=== PATIENT | female | born 1985 | race American Indian/Alaskan Native ===

== ENCOUNTER 2021-01-15 16:10 | Inpatient (IN) | payer OTHER ==
[2021-01-15] MEDS ORDERED: ACETAMINOPHEN 325 MG TAB PO PRN (17:53)
[2021-01-15] MEDS ORDERED: MAGNESIUM HYDROXIDE (MOM) ORAL LIQD UDC PO PRN (17:53)
[2021-01-15] MEDS ORDERED: ONDANSETRON 4 MG ODT TAB PO PRN (17:58)
[2021-01-15] MEDS ORDERED: hydrALAZINE 20 MG/1 ML INJ IV PRN (17:58)
[2021-01-15] MEDS ORDERED: POLYETHYLENE GLYCOL 3350 17 GM POWDER PO PRN (17:58)
[2021-01-16] MEDS: ENOXAPARIN 40 MG/0.4 ML INJ SUB-Q SCH (11:15)
[2021-01-16] MEDS: FAMOTIDINE 10 MG TAB PO SCH ×3 (11:15→22:12)
[2021-01-16] MEDS: FOLIC ACID 1 MG TAB PO SCH (11:15)
[2021-01-16] MEDS: FERROUS SULFATE 325 MG TAB PO SCH (11:15)
[2021-01-16 11:16] LABS: Hematocrit 29.8 % (30.3-42.9); Hemoglobin 9.8 gm/dl (10.1-14.3); Mean Corpuscular HGB Conc 33 % (30-34); Mean Corpuscular Volume 84 fl (79-97); Platelet Count 555 K/mm3 (140-440); Red Blood Count 3.55 M/mm3 (3.65-5.03)
[2021-01-16] MEDS: HYDROcodone/ACETAMINOPHEN 5-325 MG TAB PO PRN ×2 (11:16→17:12)
[2021-01-16 11:18] LABS: Red Cell Distribution Width 22.1 % (13.2-15.2)
[2021-01-16] MEDS: VALPROIC ACID 250 MG CAP PO SCH ×3 (11:18→22:12)
[2021-01-16] MEDS: SENNOSIDES 8.6 MG TAB PO SCH ×2 (11:18→22:12)
[2021-01-16] MEDS: MAGNESIUM CHLORIDE ER 64 MG TAB PO SCH (11:18)
[2021-01-16 11:32] LABS: Alanine Aminotransferase 31 units/L (7-56); Albumin 2.4 g/dL (3.9-5); Blood Urea Nitrogen 8 mg/dL (7-17); Calcium 8.4 mg/dL (8.4-10.2); Hemolysis Index 7
[2021-01-16 11:38] LABS: BUN/Creatinine Ratio 40
--- NOTE | 2021-01-16 12:07 | History and Physical Report ---
History of Present Illness Date: 01/16/21 Date of admission: 01/16/21 10:28 Chief Complaint: Right intertrochanteric fracture History of present illness: 35-year-old female with a right intertrochanteric hip fracture that sought care in the ED due to pain and swelling. Initial x-rays showed a minimally displaced fracture with no extension into the intertrochanteric area and the patient was managed nonoperatively. Patient will subsequently discharged home where the pain became worse. Upon further examination, the fracture had become more displaced and she was taken for an IM nail procedure for fixation on 01/12/[address] Hanley. Patient also experienced a fall afterwards, examination after the fall revealed no loosening or damage to the hardware. Patient does have long history of narcotic use for pain related to sickle cell crisis. Initially the patient was being looked at to discharge home however due to lack of funding and poor social support she was selected as a candidate for participation in acute rehab under our [facility] caseload. Speaking with therapy who have worked with the patient previously and upon my examination of the patient, she is very fixated on pain and starts to cry as soon as I entered the room even though she was seemingly fine from the doorway before I walked in. Did spend approximately 20 minutes with her discussing her pain medication regimen and assuring her that we would do our best to control her pain while at the same time assisting her with transitioning to oral medications and helping her to avoid being oversedated. Patient is anxious on exam and fixated on the pain medications, poor dentition is also witnessed and raises concern for possible drug use although the patient denies this. Screen on admission was negative for any illicit substances tested and alcohol levels were normal. Patient would likely benefit from social work intervention once she discharges if we can find outpatient home health that will take her without insurance. After the patient was medically stabilized they were transferred for further rehabilitation. All available medical records have been reviewed. Plan of care was discussed with patient. Past History Past Medical History: seizures, other (Sickle cell anemia) Past Surgical History: Social history: single, lives with family (Patient lives with a fianc, some notes stated that she was homeless however she does live in a structure in someone's backyard), full code. denies: smoking, alcohol abuse (Admits to utilizing alcohol 3 days a week but states she does not overuse), prescription drug abuse, IV drug use Family history: other (Sickle cell anemia) Medications and Allergies Allergies Allergy/AdvReac Type Severity Reaction Status Date / Time No Known Allergies Allergy Unverified 01/16/21 10:18 Active Meds: Active Medications Acetaminophen (Acetaminophen 325 Mg Tab) 650 mg PO Q6H PRN PRN Reason: Headache Hydrocodone Bitart/Acetaminophen (Hydrocodone/Acetaminophen 5-325 Mg Tab) 2 each PO Q4H PRN PRN Reason: Pain, Moderate (4-6) Hydrocodone Bitart/Acetaminophen (Hydrocodone/Acetaminophen 5-325 Mg Tab) 1 each PO Q4H PRN PRN Reason: Mild Pain unrelieved by APAP Last Admin: 01/16/21 11:16 Dose: 1 each Documented by: Bisacodyl (Bisacodyl 10 Mg Rect Supp) 10 mg ND QDAY PRN PRN Reason: Constipation unrelieved by MOM Enoxaparin Sodium (Enoxaparin 40 Mg/0.4 Ml Inj) 40 mg SUB-Q QDAY [facility] Last Admin: 01/16/21 11:15 Dose: 40 mg Documented by: Famotidine (Famotidine 10 Mg Tab) 10 mg PO BID [facility] Last Admin: 01/16/21 11:16 Dose: 10 mg Documented by: Ferrous Sulfate (Ferrous Sulfate 325 Mg Tab) 325 mg PO QDAY [facility] Last Admin: 01/16/21 11:15 Dose: 325 mg Documented by: Folic Acid (Folic Acid 1 Mg Tab) 1 mg PO QDAY [facility] Last Admin: 01/16/21 11:15 Dose: 1 mg Documented by: Hydralazine HCl (Hydralazine 20 Mg/1 Ml Inj) 10 mg IV Q4HR PRN PRN Reason: Hypertension Hydromorphone HCl (Hydromorphone 1 Mg/1 Ml Inj) 1 mg IV Q4H PRN PRN Reason: Pain , Severe (7-10) Magnesium Chloride (Magnesium Chloride Er 64 Mg Tab) 64 mg PO QDAY [facility] Last Admin: 01/16/21 11:18 Dose: 64 mg Documented by: Magnesium Hydroxide (Magnesium Hydroxide (Mom) Oral Liqd Udc) 30 ml PO QDAY PRN PRN Reason: Constipation Ondansetron HCl (Ondansetron 4 Mg Odt Tab) 4 mg PO Q8H PRN PRN Reason: Nausea And Vomiting Polyethylene Glycol (Polyethylene Glycol 3350 17 Gm Powder) 17 gm PO QDAY PRN PRN Reason: Constipation Potassium Chloride (Potassium Chloride Er 20 Meq Tab) 40 meq PO QDAY [facility] Senna (Sennosides 8.6 Mg Tab) 17.2 mg PO QHS [facility] Last Admin: 01/16/21 11:18 Dose: Not Given Documented by: Valproic Acid (Valproic Acid 250 Mg Cap) 500 mg PO BID [facility] Last Admin: 01/16/21 11:18 Dose: 500 mg Documented by: Review of Systems All systems: negative (ROS negative for 10 systems except as noted below with pertinent positives and negatives.) Constitutional: no weight gain, no fever Ears, nose, mouth and throat: no tinnitis, no decreased hearing Cardiovascular: rapid/irregular heart beat, no chest pain, no palpitations, no edema Respiratory: no cough, no shortness of breath Gastrointestinal: constipation, no abdominal pain, no nausea, no vomiting, no diarrhea Musculoskeletal: gait dysfunction, fractures, no arm numbness/tingling, no leg numbness/tingling Integumentary: wounds, no rash, no pruritis Neurological: weakness, seizures, confusion Psychiatric: anxiety, disorientation Exam - Exam Narrative exam: MUSCULOSKELETAL SPECIALTY EXAM CONSTITUTIONAL: Well developed, malnourished, thin, appropriately groomed LYMPHATIC: No appreciable abnormalities palpable in neck RESPIRATORY: Clear to auscultation bilaterally, no increased work of breathing CARDIOVASCULAR: Regular Rate/ Rhythm, no swelling, edema or tenderness in BUE or BLE. Pulses palpable in all extremities. All extremities warm. GI: + bowel sounds, soft, NTTP, nondistended. INTEGUMENTARY: Wound on right lower extremity intact with slight drainage, zip closure, otherwise normal, no lesion, rash, masses or bruising noted in extremities. MUSCULOSKELETAL: BUE and BLE normal without defect, crepitus, subluxation, effusion, arthritic changes or TTP. BUE 4+/5, good ROM, with normal tone. LLE 4+/5 good ROM, with normal tone, decreased range of motion/due to pain on the right lower extremity NEURO: CN 2-12 grossly intact. Sensation intact in all extremities. Reflexes 2+ bilaterally at biceps, brachioradialis and patella. No clonus at ankles. Coordination intact in BUE. No tremor noted in 4 extremities. POSTURE and GAIT: Sitting posture good. Balance and gait deferred until seen with therapy. PSYCH: Alert, disoriented to year and place, affect appears anxious. Insight difficult to assess, patient seems fixated on pain medications. - Labs CBC & Chem 7: 01/16/21 10:41 01/16/21 10:41 Labs: Laboratory Results - last 72 hr 01/16/21 01/16/21 01/16/21 10:41 10:41 10:41 WBC 11.5 H RBC 3.55 L Hgb 9.8 L Hct 29.8 L MCV 84 MCH 28 MCHC 33 RDW 22.1 H Plt Count 555 H WBC Morphology TNR Sodium 131 L Potassium 3.5 L Chloride 93.4 L Carbon Dioxide 28 Anion Gap 13 BUN 8 Creatinine < 0.2 L Estimated GFR > 60 BUN/Creatinine Ratio 40 Glucose 111 H Calcium 8.4 Magnesium 1.80 Total Bilirubin 0.50 AST 53 H ALT 31 Alkaline Phosphatase 282 H Total Protein 7.2 Albumin 2.4 L Albumin/Globulin Ratio 0.5 Assessment and Plan Assessment and plan: Patient was assessed and evaluated for Acute Inpatient Rehab Unit. Due to the patients above-mentioned medical complexity, along with decreased functional mobility and self care, this patient continues to require and be appropriate for a comprehensive, multidisciplinary [id number] reha bilitation program. These needs cannot be met in an outpatient or other less intensive setting. The patient would continue to benefit from skilled therapy intervention for at least 3 hours per day, five days a week, with techniques specific to the needs of the patient to improve function, activities of daily living, and reintegration into the community. The patient continues to require: -- OT to improve ROM, self-care, and learn use of adaptive equipment -- PT to improve strength and balance, functional transfers, and ambulation with energy conservation techniques to improve functional mobility -- 24 hour RN to ensure and prevent skin breakdown, promote progressive independence while ensuring safety, ensure education regarding medications, and incorporation of the rehabilitation at the bedside -- 24 hour Release Of Information Clerk to coordinate this interdisciplinary program, and to manage/prevent complications as a result of the patients medical comorbidities. -Plan of care by day 4 -Weekly team conferences With such a program, there is a reasonable certainty that the goals individualized for this patient can be achieved within the specified length of stay. Right hip fracture: Continue to monitor wound for healing. Physical therapy to improve patient's ability to ambulate and mobilize. Nursing to assist patient with getting up out of bed and into a chair for meals each day. Pain control as needed with focus on switching to oral medications prior to discharge. Have discussed this with patient at length. Monitor wound for any signs of dehiscence or infection. Change dressing every other day and as needed. Patient will need follow-up with Dr. Hanley. Seizures: Continue medication and adjust as needed. Seizure precautions in place. Sickle cell anemia: Patient states she is on hydroxyurea at home however I do not see that being listed as one of her medications here. We will restart that and monitor. Severe malnutrition: Consult dietitian. BMI 15, decreased muscle mass ADL dysfunction: OT will work on improving ability to perform ADLs (including assistive devices) to increase independence and decrease caregiver burden and improve functional transfers and mobility training. Difficulty walking: PT will work on gait training and proper use of assistive devices and advance as appropriate to use of stairs and outside ambulation on uneven surfaces. Unsteadiness on feet: PT will work on improving static and dynamic sitting and standing balance as well as proper use of assistive devices to decrease risk of falls. Abnormality of gait: PT will work to improve safety and efficiency of gait through neuromotor training and gait training along with instruction on proper use of assistive devices. Muscle weakness: PT & OT will work on strengthening exercises to improve functional strength including mixture of closed and open kinetic chain exercises. Debility: PT & OT will work on improving overall functional status to improve participation with ADLs, mobility and social involvement. Fatigue: PT & OT will work on improving endurance through aerobic exercises and therapeutic activity while monitoring patients tolerance for activity and vital signs as needed. DVT ppx: Lovenox Pain: Continue physical modalities in therapy and pain medications as needed to achieve functional pain control. Sleep: Monitor and address as needed. Bowel: Monitor and address as needed. Appetite: Monitor and address as needed. Discharge planning: Pending therapy progress and care plan meeting. Will continue discussion with therapy team, SW, patient and family. Restrictions/ Precautions: Falls, seizure WB status: Partial weightbearing on the right lower extremity Functional Hx: ADLs: Independent Cognition: Independent Mobility: No AD Barriers to Discharge: Decreased mobility and ability to perform self care, balance deficits, weakness Estimated Length of Stay: 710 days Discharge Destination: Home with family POST ADMISSION PHYSICIAN EVALUATION I have examined the patient and find that functional status, medical condition and appropriateness for IRF admission are essentially unchanged from those described in the preadmission screening. Will monitor for worsening wound dehiscence, infection, loosening of hardware, DVT/PE, bowel and bladder compl ications and complications due to sickle cell, seizure and electrolyte abnormalities. Will attempt to avoid occurrence of these issues or treat them if they present themselves.
[2021-01-16] MEDS: POTASSIUM CHLORIDE ER 20 MEQ TAB PO SCH (13:25)
[2021-01-16] MEDS: HYDROmorphone 1 MG/1 ML INJ IV PRN ×3 (13:25→22:13)
[2021-01-16 13:57] LABS: Band Neutrophils # (Manual) 0.3 K/mm3; Total Cells Counted 100
[2021-01-16 13:58] LABS: Anisocytosis 2+; Target Cells Few
[2021-01-16] MEDS: HYDROXYUREA 500 MG CAP PO SCH (17:13)
[2021-01-17] MEDS: HYDROmorphone 1 MG/1 ML INJ IV PRN ×5 (04:25→20:47)
[2021-01-17] MEDS: FOLIC ACID 1 MG TAB PO SCH (09:27)
[2021-01-17] MEDS: VALPROIC ACID 250 MG CAP PO SCH ×2 (09:27→21:05)
[2021-01-17] MEDS: ENOXAPARIN 40 MG/0.4 ML INJ SUB-Q SCH (09:28)
[2021-01-17] MEDS: HYDROXYUREA 500 MG CAP PO SCH (09:28)
[2021-01-17] MEDS: POTASSIUM CHLORIDE ER 20 MEQ TAB PO SCH (09:28)
[2021-01-17] MEDS: FAMOTIDINE 10 MG TAB PO SCH ×2 (09:28→21:05)
[2021-01-17] MEDS: FERROUS SULFATE 325 MG TAB PO SCH (09:28)
[2021-01-17] MEDS: MAGNESIUM CHLORIDE ER 64 MG TAB PO SCH (09:29)
[2021-01-17] MEDS: HYDROcodone/ACETAMINOPHEN 5-325 MG TAB PO PRN (16:01)
[2021-01-17] MEDS: SENNOSIDES 8.6 MG TAB PO SCH (21:05)
[2021-01-18] MEDS: HYDROmorphone 1 MG/1 ML INJ IV PRN ×3 (00:48→09:01)
[2021-01-18 07:13] LABS: Hematocrit 28.5 % (30.3-42.9); Mean Corpuscular HGB Conc 32 % (30-34); Mean Corpuscular Volume 85 fl (79-97); Platelet Count 460 K/mm3 (140-440); Red Blood Count 3.35 M/mm3 (3.65-5.03)
[2021-01-18 07:18] LABS: Red Cell Distribution Width 22.3 % (13.2-15.2)
[2021-01-18 07:30] LABS: Blood Urea Nitrogen 4 mg/dL (7-17); Calcium 8.3 mg/dL (8.4-10.2); Hemolysis Index 10
[2021-01-18 07:32] LABS: BUN/Creatinine Ratio 20
[2021-01-18] MEDS: POTASSIUM CHLORIDE ER 20 MEQ TAB PO SCH (09:03)
[2021-01-18] MEDS: MAGNESIUM CHLORIDE ER 64 MG TAB PO SCH (09:04)
[2021-01-18] MEDS: FAMOTIDINE 10 MG TAB PO SCH ×2 (09:04→21:18)
[2021-01-18] MEDS: FERROUS SULFATE 325 MG TAB PO SCH (09:04)
[2021-01-18] MEDS: HYDROXYUREA 500 MG CAP PO SCH (09:04)
[2021-01-18] MEDS: ENOXAPARIN 40 MG/0.4 ML INJ SUB-Q SCH (09:04)
[2021-01-18] MEDS: FOLIC ACID 1 MG TAB PO SCH (09:04)
[2021-01-18] MEDS: VALPROIC ACID 250 MG CAP PO SCH ×2 (09:04→21:17)
[2021-01-18] MEDS ORDERED: HYDROmorphone 1 MG/1 ML INJ IV PRN (10:00)
--- NOTE | 2021-01-18 10:07 | Progress Note ---
Subjective Date of service: 01/18/21 Principal diagnosis: Right intertrochanteric fracture Interval history: 35-year-old female with a right intertrochanteric hip fracture that sought care in the ED due to pain and swelling. Initial x-rays showed a minimally displaced fracture with no extension into the intertrochanteric area and the patient was managed nonoperatively. Patient will subsequently discharged home where the pain became worse. Upon further examination, the fracture had become more displaced and she was taken for an IM nail procedure for fixation on 01/12/[address] Hanley. Patient also experienced a fall afterwards, examination after the fall revealed no loosening or damage to the hardware. Patient does have long history of narcotic use for pain related to sickle cell crisis. Interval History: Patient is participating in therapy and making reasonable progress. Taking rest breaks as needed. +BM. Denies palpitations, dyspnea, cough, N/V. Per nursing, the patient has been getting out of bed over the weekend, lays on the floor and screams wanting her Dilaudid. Every time I have interacted the patient upon initially entering the room she seems to be very comfortable and in no acute distress. Soon as I enter the room she then states that she is in severe pain. Nursing also mention today that they are concerned for her safety at home. Will discuss with social work patient may need an APS visit prior to or shortly after discharge. Patient now stating that she wants to go home as soon as possible or possibly move to another unit, but she also understands that she is not in good condition to go home currently. Patient mentioned today that she had back and chest pain. It does not sound like it is cardiogenic in nature but will obtain an EKG to rule out any acute changes. Patient does have certain pain seeking behaviors and while she is describing the back and chest pain to me she was in no acute distress, vitals have been stable. Right hip fracture: Continue to monitor for any signs of wound dehiscence, infection, or are hardware malfunction. Partial weightbearing per Ortho. Continue therapy to improve mobility and ability to perform self-care. Seizure: Continue medications, Depakote level checked and is slightly on the low side. Seizure precautions in place Sickle cell anemia: Continue hydroxyurea. Monitor for any signs of acute exacer bation/crisis Severe malnutrition: Dietitian consulted. Supplements started. ADL and mobility dysfunction: Continue to work with therapy in order to improve patient's ability to ambulate and perform self-care. Scattered excoriations: Patient states that she is cut sores and itching these are on her back as well as chest area. Does not appear to be a rash. May be from elevated amounts of opioids. Pain control: Had a long discussion with the patient on admission about the need to decrease and stop IV pain medications. Patient continued to mostly take IV pain medications over the weekend. Have significantly reduced that frequency and again spoke with the patient at length about transitioning to oral pain medications. All records, vitals, labs and medications were reviewed. No other issues per patient, nursing or therapy. Objective - Exam Narrative Exam: MUSCULOSKELETAL SPECIALTY EXAM CONSTITUTIONAL: Well developed, malnourished, thin, appropriately groomed RESPIRATORY: Clear to auscultation bilaterally, no increased work of breathing CARDIOVASCULAR: Regular Rate/ Rhythm, no swelling, edema or tenderness in BUE or BLE. Pulses palpable in all extremities. All extremities warm. GI: + bowel sounds, soft, NTTP, nondistended. INTEGUMENTARY: Wound on right lower extremity intact with slight drainage, zip closure, slight excoriations on chest and back, otherwise normal, no lesion, rash, masses or bruising noted in extremities. MUSCULOSKELETAL: BUE and BLE normal without defect, crepitus, subluxation, effusion, arthritic changes or TTP. BUE 4+/5, good ROM, with normal tone. LLE 4+/5 good ROM, with normal tone, decreased range of motion/due to pain on the right lower extremity NEURO: CN 2-12 grossly intact. Sensation intact in all extremities. No tremor noted in 4 extremities. POSTURE and GAIT: Sitting posture good. Balance and gait deferred until seen with therapy. PSYCH: Alert, disoriented to year and place, affect appears anxious. Insight difficult to assess, patient seems fixated on pain medications. - Constitutional Vitals: Vital Signs - 12hr 01/17/21 01/17/21 01/18/21 22:00 23:26 03:47 Temperature 98.1 F 98.6 F Pulse Rate 102 H 100 H Respiratory 16 16 Rate Blood Pressure 113/67 115/72 O2 Sat by Pulse 97 100 98 Oximetry 01/18/21 09:01 Temperature Pulse Rate Respiratory 20 Rate Blood Pressure O2 Sat by Pulse Oximetry - Allied health notes Allied health notes reviewed: nursing, PT, OT, social work FIMS assessment as documented by PT/OT/ST: Locomotion- walk/wheelchair Ambulation Distance 20 - Labs CBC & Chem 7: 01/18/21 06:58 01/18/21 06:58 Labs: Laboratory Results - last 72 hr 01/16/21 01/16/21 01/16/21 10:41 10:41 10:41 WBC 11.5 H RBC 3.55 L Hgb 9.8 L Hct 29.8 L MCV 84 MCH 28 MCHC 33 RDW 22.1 H Plt Count 555 H Add Manual Diff Complete Total Counted 100 Seg Neuts % (Manual) 91.0 H Band Neutrophils % 3.0 Lymphocytes % (Manual) 3.0 L Monocytes % (Manual) 3.0 Nucleated RBC % Not Reportable Seg Neutrophils # Man 10.5 H Band Neutrophils # 0.3 Lymphocytes # (Manual) 0.3 L Abs React Lymphs (Man) 0.0 Monocytes # (Manual) 0.3 Eosinophils # (Manual) 0.0 Basophils # (Manual) 0.0 Metamyelocytes # 0.0 Myelocytes # 0.0 Promyelocytes # 0.0 Blast Cells # 0.0 WBC Morphology Not Reportable TNR Hypersegmented Neuts Not Reportable Hyposegmented Neuts Not Reportable Hypogranular Neuts Not Reportable Smudge Cells Not Reportable Toxic Granulation Not Reportable Toxic Vacuolation Not Reportable Dohle Bodies Not Reportable Pelger-Huet Anomaly Not Reportable Aneta Rods Not Reportable Platelet Estimate Not Reportable Clumped Platelets Not Reportable Plt Clumps, EDTA Not Reportable Large Platelets Not Reportable Giant Platelets Not Reportable Platelet Satelliting Not Reportable Plt Morphology Comment Not Reportable RBC Morphology Not Reportable Dimorphic RBCs Not Reportable Polychromasia Not Reportable Hypochromasia Not Reportable Poikilocytosis Not Reportable Anisocytosis 2+ Microcytosis Not Reportable Macrocytosis Not Reportable Spherocytes Not Reportable Pappenheimer Bodies Not Reportable Sickle Cells Not Reportable Target Cells Few Tear Drop Cells Not Reportable Ovalocytes Not Reportable Helmet Cells Not Reportable Mendoza-[place] Bodies Not Reportable [place] Rings Not Reportable [place] Cells Not Reportable Bite Cells Not Reportable Crenated Cell Not Reportable Elliptocytes Not Reportable Acanthocytes (Spur) Not Reportable Rouleaux Not Reportable Hemoglobin C Crystals Not Reportable Schistocytes Not Reportable Malaria parasites Not Reportable Maycol Bodies Not Reportable Hem Pathologist Commnt No Sodium 131 L Potassium 3.5 L Chloride 93.4 L Carbon Dioxide 28 Anion Gap 13 BUN 8 Creatinine < 0.2 L Estimated GFR > 60 BUN/Creatinine Ratio 40 Glucose 111 H Calcium 8.4 Magnesium 1.80 Total Bilirubin 0.50 AST 53 H ALT 31 Alkaline Phosphatase 282 H Total Protein 7.2 Albumin 2.4 L Albumin/Globulin Ratio 0.5 Valproic Acid 01/18/21 01/18/21 01/18/21 06:58 06:58 06:58 WBC 11.5 H RBC 3.35 L Hgb 9.0 L Hct 28.5 L MCV 85 MCH 27 L MCHC 32 RDW 22.3 H Plt Count 460 H Add Manual Diff Total Counted Seg Neuts % (Manual) Band Neutrophils % Lymphocytes % (Manual) Monocytes % (Manual) Nucleated RBC % Seg Neutrophils # Man Band Neutrophils # Lymphocytes # (Manual) Abs React Lymphs (Man) Monocytes # (Manual) Eosinophils # (Manual) Basophils # (Manual) Metamyelocytes # Myelocytes # Promyelocytes # Blast Cells # WBC Morphology Hypersegmented Neuts Hyposegmented Neuts Hypogranular Neuts Smudge Cells Toxic Granulation Toxic Vacuolation Dohle Bodies Pelger-Huet Anomaly Aneta Rods Platelet Estimate Clumped Platelets Plt Clumps, EDTA Large Platelets Giant Platelets Platelet Satelliting Plt Morphology Comment RBC Morphology Dimorphic RBCs Polychromasia Hypochromasia Poikilocytosis Anisocytosis Microcytosis Macrocytosis Spherocytes Pappenheimer Bodies Sickle Cells Target Cells Tear Drop Cells Ovalocytes Helmet Cells Mendoza-[place] Bodies [place] Rings [place] Cells Bite Cells Crenated Cell Elliptocytes Acanthocytes (Spur) Rouleaux Hemoglobin C Crystals Schistocytes Malaria parasites Maycol Bodies Hem Pathologist Commnt Sodium 130 L Potassium 3.4 L Chloride 95.7 L Carbon Dioxide 28 Anion Gap 10 BUN 4 L Creatinine < 0.2 L Estimated GFR > 60 BUN/Creatinine Ratio 20 Glucose 95 Calcium 8.3 L Magnesium 1.80 Total Bilirubin AST ALT Alkaline Phosphatase Total Protein Albumin Albumin/Globulin Ratio Valproic Acid 46.7 L Assessment and Plan Right hip fracture: Continue to monitor wound for healing. Physical therapy to improve patient's ability to ambulate and mobilize. Nursing to assist patient with getting up out of bed and into a chair for meals each day. Pain control as needed with focus on switching to oral medications prior to discharge. Have discussed this with patient at length. Monitor wound for any signs of dehiscence or infection. Change dressing every other day and as needed. Patient will need follow-up with Dr. Hanley. Seizures: Continue medication and adjust as needed. Seizure precautions in place. Sickle cell anemia: Patient states she is on hydroxyurea at home however I do not see that being listed as one of her medications here. We will restart that and monitor. Chest and back pain: Uncertain etiology but does not appear to be cardiogenic in nature. EKG to rule out cardiac etiology. Excoriations and itching: Possibly due to excessive amounts of opiates that the patient is taking, Benadryl cream for symptom relief and have reduced pain medications. Severe malnutrition: Consult dietitian. BMI 15, decreased muscle mass Pain: Discussed with the patient on multiple occasions need to reduce her reliance on IV pain medications and reduce overall dose of pain medications. Have reduced IV pain medications and will discontinue in the next couple of days. ADL dysfunction: OT will work on improving ability to perform ADLs (including assistive devices) to increase independence and decrease caregiver burden and improve functional transfers and mobility training. Difficulty walking: PT will work on gait training and proper use of assistive devices and advance as appropriate to use of stairs and outside ambulation on uneven surfaces. Unsteadiness on feet: PT will work on improving static and dynamic sitting and standing balance as well as proper use of assistive devices to decrease risk of falls. Abnormality of gait: PT will work to improve safety and efficiency of gait through neuromotor training and gait training along with instruction on proper use of assistive devices. Muscle weakness: PT & OT will work on strengthening exercises to improve fun ctional strength including mixture of closed and open kinetic chain exercises. Debility: PT & OT will work on improving overall functional status to improve participation with ADLs, mobility and social involvement. Fatigue: PT & OT will work on improving endurance through aerobic exercises and therapeutic activity while monitoring patients tolerance for activity and vital signs as needed. DVT ppx: Lovenox Pain: Continue physical modalities in therapy and pain medications as needed to achieve functional pain control. Sleep: Monitor and address as needed. Bowel: Monitor and address as needed. Appetite: Monitor and address as needed. Discharge planning: Pending therapy progress and care plan meeting. Will continue discussion with therapy team, SW, patient and family. Nursing has co ncerns about safety of patient at discharge. Will have social work look into this and possibly refer for APS consult. Restrictions/ Precautions: Falls, seizure WB status: Partial weightbearing on the right lower extremity Functional Hx: ADLs: Independent Cognition: Independent Mobility: No AD Barriers to Discharge: Decreased mobility and ability to perform self care, balance deficits, weakness Estimated Length of Stay: 710 days Discharge Destination: Home with family
[2021-01-18] MEDS ORDERED: diphenhydrAMINE/ZINC ACET 2% CREAM 28.4 GM TP PRN (11:00)
[2021-01-18] MEDS: HYDROcodone/ACETAMINOPHEN 5-325 MG TAB PO PRN ×2 (13:10→21:17)
[2021-01-18] MEDS: SENNOSIDES 8.6 MG TAB PO SCH (21:18)
[2021-01-19] MEDS: HYDROcodone/ACETAMINOPHEN 5-325 MG TAB PO PRN ×4 (06:30→18:17)
--- NOTE | 2021-01-19 09:05 | IRU Plan of Care ---
Interdisciplinary Plan of Care - IP IRU INTERDISCIPLINARY PLAN: [facility] Inpatient Rehab Unit Plan of Care IRU Interdisciplinary Care Plan Start: 01/16/21 16:57 Freq: Status: Active Protocol: Document 01/18/21 08:51 AB (Rec: 01/18/21 09:01 AB [id number]) Interdisciplinary Problem List Interdisciplinary Problem List Interdisciplinary Problem List Impaired Bathing/Grooming, Query Text:Answers will Trigger Problems Impaired Dressing,Impaired and Outcomes on Worklist. Mobility,Impaired Transfers, Impaired Toileting,Impaired Problem Solving,Impaired Memory,Knowledge Deficits, Impaired Safety IRU Interdisciplinary Care Plan Therapy Services Therapy Services Will Include: Physical Therapy,Occupational Query Text:Patient will be seen for a Therapy minimum of 3 hours of daily therapy 5 out of 7 days a week. Therapy intensity may be adjusted within a 7 consecutive day period to effectively serve the individual needs of the patient. Treatment Frequency/Intensity/Duration Treatment Frequency 3 hours/ day Treatment Intensity 5x/ week Treatment Duration 10- 14 days Problem Area: Eating/Swallowing Eating/Swallowing Outcomes Eating/Swallowing Interventions Problem Area: Bathing/Grooming Bathing/Grooming Outcomes Improve [place] w/ Grooming,Improve [place] w/ Bathing Bathing/Grooming Interventions ADL Training,Use of Assistive Devices,Therapeutic Exercise, Therapeutic Activity, Neuromuscular Re-Education, Balance Work,Activity Tolerance Work,Patient/ Caregiver Education Problem Area: Dressing Dressing Outcomes Improve [place] w/ UB Dressing Dressing Interventions ADL Training,Use of Assistive Devices,Neuromuscular Re- Education,Therapeutic Exercise ,Balance Work,Modalities, Patient/Caregiver Education Problem Area: Mobility Mobility Outcomes Improve [place] w/ Bed Mobility,Improve [place] w/ Ambulation,Improve [place] w/ Stairs/Curb, Improve [place] w/ Wheelchair Mobility Interventions Therapeutic Exercise,Activity Tolerance Work,Use of Assistive Devices,Patient/ Caregiver Education,Bed Mobility Work,Gait Training,W/ C Mobility Work Problem Area: Transfers Transfers Outcomes Improve [place] w/ Bed Transfers,Improve [place] w/ Toilet Transfers,Improve [place] w/ Car Transfers Transfers Interventions Transfer Training,Therapeutic Exercise,Activity Tolerance Work,Use of Assistive Devices, Patient/Caregiver Education Problem Area: Bowel/Bladder Managment Bowel/Bladder Outcomes Bowel/Bladder Interventions Problem Area: Toileting Toileting Outcomes Improve [place] w/ Toileting Toileting Interventions ADL Training,Balance Work,Use of Assistive Devices,Patient/ Caregiver Education Problem Area: Nutrition Nutrition Outcomes Nutrition Interventions Problem Area: Comprehension Comprehension Outcomes Comprehension Interventions Problem Area: Expression Expression Outcomes Expression Interventions Problem Area: Problem Solving Problem Solving Outcomes Problem Solving Interventions Problem Area: Memory Memory Outcomes Memory Interventions Use of Assistive Devices ( Memory Book, etc,),Review of Precautions,Patient/Caregiver Education Problem Area: Pain Management Pain Management Outcomes Pain Management Interventions Problem Area: Knowledge Deficits Knowledge Deficits Outcomes Verbalize Precautions Knowledge Deficits Interventions Safety Education Problem Area: Skin/Tissue Integrity Skin/Tissue Integrity Outcomes Skin/Tissue Integrity Interventions Problem Area: Social Interaction Social Interaction Outcomes Social Interaction Interventions Problem Area: Adjustment to Disability Adjustment to Disability Outcomes Adjustment to Disability Interventions Problem Area: Discharge Concerns Discharge Concerns Outcomes Discharge w/ Necessary Equipment,Have Home Health/ Outpatient Services Discharge Concerns Interventions Discharge Planning,Equipment Assessment, Acquisition and Placement,Family/Caregiver Training Problem Area: Community Reintegration Community Reintegration Outcomes Community Reintegration Interventions Problem Area: Home Management Home Management Outcomes Home Management Interventions Problem Area: Safety Safety Outcomes Demonstrate Good Safety w/ Transfers/Mobility Safety Interventions Identify Fall Risk,Implement Mechanical Devices, i.e. Chair Alarm (Post Fall Update),Re- Educate Patient/Caregiver for Safety (Post Fall Update) Problem Area: Medication Education Medication Education Outcomes Medication Education Interventions Problem Area: Diabetes Education Diabetes Education Outcomes Diabetes Education Interventions Problem Area: Oxygenation Oxygenation Outcomes Oxygenation Interventions Problem Area: Cardiovascular Cardiovascular Outcomes Cardiovascular Interventions Physician Only Medical Prognosis and Rehabilitation Potential (Completed by Physician) Good medical prognosis, fair rehab potential This plan of care has been developed based on the findings from the pre- admission assessment, post admission physician evaluation, information gathered from the assessments from all therapy disciplines and other pertinent clinicians. The plan of care has been reviewed and discussed in collaboration with the interdisciplinary team. The plan of care will be reviewed and updated at least weekly.
[2021-01-19] MEDS: MAGNESIUM CHLORIDE ER 64 MG TAB PO SCH (09:12)
[2021-01-19] MEDS: ENOXAPARIN 40 MG/0.4 ML INJ SUB-Q SCH (09:12)
[2021-01-19] MEDS: FAMOTIDINE 10 MG TAB PO SCH ×2 (09:12→21:02)
--- NOTE | 2021-01-19 09:12 | Progress Note ---
Subjective Date of service: 01/19/21 Principal diagnosis: Right intertrochanteric fracture Interval history: 35-year-old female with a right intertrochanteric hip fracture that sought care in the ED due to pain and swelling. Initial x-rays showed a minimally displaced fracture with no extension into the intertrochanteric area and the patient was managed nonoperatively. Patient will subsequently discharged home where the pain became worse. Upon further examination, the fracture had become more displaced and she was taken for an IM nail procedure for fixation on 01/12/[address] Hanley. Patient also experienced a fall afterwards, examination after the fall revealed no loosening or damage to the hardware. Patient does have long history of narcotic use for pain related to sickle cell crisis. Interval History: Patient has decreased participation with therapy and is making slow progress. Taking rest breaks as needed. +BM. Denies palpitations, dyspnea, cough, N/V. Patient apparently try to get out of bed this morning and tells me that she fell, do not see any signs of injury. Patient is not complaining of any pain other than wanting her IV pain medications. Again had a prolonged conversation with the patient that we are weaning her off of her IV pain medications and she needs to take oral pain medications because we cannot send her home with IV pain medications. Patient seems to understand this when you tell her however will later yell and scream and go out to the hallway wanting IV pain medications. It appears that the patient has a long history of opiate medication use and possibly some abuse. She tells me that she has been without insurance for approximately 5 months and that was when she last received any pain medications from her prior physicians. Patient did sign to go AMA yesterday however then refused to leave. Unfortunately, the patient was having these behavioral episodes prior to coming to rehab and none of these episodes were reported to us when we were asked to accept the patient as a pollo case. Denies any chest pain or other issues today. Right hip fracture: Continue to monitor for any signs of wound dehiscence, infection, or are hardware malfunction. Partial weightbearing per Ortho. Continue therapy to improve mobility and ability to perform self-care. Will change patient over to Xarelto for 21 days to complete a total of 28 days of DVT prophylaxis starting tomorrow. Seizure: Continue medications, Depakote level checked and is slightly on the low side. Seizure precautions in place Sickle cell anemia: Continue hydroxyurea. Monitor for any signs of acute exacerbation/crisis Severe malnutrition: Dietitian consulted. Supplements started. ADL and mobility dysfunction: Continue to work with therapy in order to improve patient's ability to ambulate and perform self-care. Scattered excoriations: Patient states that she is cut sores and itching these are on her back as well as chest area. Does not appear to be a rash. May be from elevated amounts of opioids. Pain control: I have had several conversations with the patient about pain medication and the need to discontinue IV pain medications. We will stop IV pain medications today as the patient is 1 week out of her surgery. Have discussed this with the patient and her pain should be well controlled on oral medications. Patient discussed during team conference. Patient not participating fully with therapy. We will look to discharge patient at the wheelchair level tomorrow. May also make an APS referral based on counts by nursing. Patient may also leave AMA however I have attempted to explain to her that she does need certain medications which would not be available if she leaves AMA. All records, vitals, labs and medications were reviewed. No other issues per patient, nursing or therapy. Objective - Exam Narrative Exam: MUSCULOSKELETAL SPECIALTY EXAM CONSTITUTIONAL: Well developed, malnourished, thin, appropriately groomed RESPIRATORY: Clear to auscultation bilaterally, no increased work of breathing CARDIOVASCULAR: Regular Rate/ Rhythm, no swelling, edema or tenderness in BUE or BLE. Pulses palpable in all extremities. All extremities warm. GI: + bowel sounds, soft, NTTP, nondistended. INTEGUMENTARY: Wound on right lower extremity intact with slight drainage, zip closure, slight excoriations on chest and back, otherwise normal, no lesion, rash, masses or bruising noted in extremities. MUSCULOSKELETAL: BUE and BLE normal without defect, crepitus, subluxation, effusion, arthritic changes or TTP. BUE 4+/5, good ROM, with normal tone. LLE 4+/5 good ROM, with normal tone, decreased range of motion/due to pain on the right lower extremity NEURO: CN 2-12 grossly intact. Sensation intact in all extremities. No tremor noted in 4 extremities. POSTURE and GAIT: Sitting posture good. Balance and gait deferred until seen with therapy. PSYCH: Alert, disoriented to year and place, affect appears anxious. Insight difficult to assess, patient seems fixated on pain medications. - Constitutional Vitals: Vital Signs - 12hr 01/18/21 01/18/21 01/19/21 22:00 23:15 03:34 Temperature 97.9 F 98.2 F Pulse Rate 119 H 117 H Pulse Rate [ Right Radial] Respiratory 18 18 Rate Blood Pressure 115/64 113/73 O2 Sat by Pulse 96 100 99 Oximetry 01/19/21 08:20 Temperature Pulse Rate Pulse Rate [ 110 H Right Radial] Respiratory 18 Rate Blood Pressure O2 Sat by Pulse 96 Oximetry - Allied health notes Allied health notes reviewed: nursing, PT, OT FIMS assessment as documented by PT/OT/ST: Locomotion- walk/wheelchair Ambulation Distance 20 - Labs CBC & Chem 7: 01/18/21 06:58 01/18/21 06:58 Labs: Laboratory Results - last 72 hr 01/16/21 01/16/21 01/16/21 10:41 10:41 10:41 WBC 11.5 H RBC 3.55 L Hgb 9.8 L Hct 29.8 L MCV 84 MCH 28 MCHC 33 RDW 22.1 H Plt Count 555 H Add Manual Diff Complete Total Counted 100 Seg Neuts % (Manual) 91.0 H Band Neutrophils % 3.0 Lymphocytes % (Manual) 3.0 L Monocytes % (Manual) 3.0 Nucleated RBC % Not Reportable Seg Neutrophils # Man 10.5 H Band Neutrophils # 0.3 Lymphocytes # (Manual) 0.3 L Abs React Lymphs (Man) 0.0 Monocytes # (Manual) 0.3 Eosinophils # (Manual) 0.0 Basophils # (Manual) 0.0 Metamyelocytes # 0.0 Myelocytes # 0.0 Promyelocytes # 0.0 Blast Cells # 0.0 WBC Morphology Not Reportable TNR Hypersegmented Neuts Not Reportable Hyposegmented Neuts Not Reportable Hypogranular Neuts Not Reportable Smudge Cells Not Reportable Toxic Granulation Not Reportable Toxic Vacuolation Not Reportable Dohle Bodies Not Reportable Pelger-Huet Anomaly Not Reportable Aneta Rods Not Reportable Platelet Estimate Not Reportable Clumped Platelets Not Reportable Plt Clumps, EDTA Not Reportable Large Platelets Not Reportable Giant Platelets Not Reportable Platelet Satelliting Not Reportable Plt Morphology Comment Not Reportable RBC Morphology Not Reportable Dimorphic RBCs Not Reportable Polychromasia Not Reportable Hypochromasia Not Reportable Poikilocytosis Not Reportable Anisocytosis 2+ Microcytosis Not Reportable Macrocytosis Not Reportable Spherocytes Not Reportable Pappenheimer Bodies Not Reportable Sickle Cells Not Reportable Target Cells Few Tear Drop Cells Not Reportable Ovalocytes Not Reportable Helmet Cells Not Reportable Mendoza-Adrian Bodies Not Reportable [place] Rings Not Reportable Devendra Cells Not Reportable Bite Cells Not Reportable Crenated Cell Not Reportable Elliptocytes Not Reportable Acanthocytes (Spur) Not Reportable Rouleaux Not Reportable Hemoglobin C Crystals Not Reportable Schistocytes Not Reportable Malaria parasites Not Reportable Maycol Bodies Not Reportable Hem Pathologist Commnt No Sodium 131 L Potassium 3.5 L Chloride 93.4 L Carbon Dioxide 28 Anion Gap 13 BUN 8 Creatinine < 0.2 L Estimated GFR > 60 BUN/Creatinine Ratio 40 Glucose 111 H Calcium 8.4 Magnesium 1.80 Total Bilirubin 0.50 AST 53 H ALT 31 Alkaline Phosphatase 282 H Total Protein 7.2 Albumin 2.4 L Albumin/Globulin Ratio 0.5 Valproic Acid 01/18/21 01/18/21 01/18/21 06:58 06:58 06:58 WBC 11.5 H RBC 3.35 L Hgb 9.0 L Hct 28.5 L MCV 85 MCH 27 L MCHC 32 RDW 22.3 H Plt Count 460 H Add Manual Diff Total Counted Seg Neuts % (Manual) Band Neutrophils % Lymphocytes % (Manual) Monocytes % (Manual) Nucleated RBC % Seg Neutrophils # Man Band Neutrophils # Lymphocytes # (Manual) Abs React Lymphs (Man) Monocytes # (Manual) Eosinophils # (Manual) Basophils # (Manual) Metamyelocytes # Myelocytes # Promyelocytes # Blast Cells # WBC Morphology Hypersegmented Neuts Hyposegmented Neuts Hypogranular Neuts Smudge Cells Toxic Granulation Toxic Vacuolation Dohle Bodies Pelger-Huet Anomaly Aneta Rods Platelet Estimate Clumped Platelets Plt Clumps, EDTA Large Platelets Giant Platelets Platelet Satelliting Plt Morphology Comment RBC Morphology Dimorphic RBCs Polychromasia Hypochromasia Poikilocytosis Anisocytosis Microcytosis Macrocytosis Spherocytes Pappenheimer Bodies Sickle Cells Target Cells Tear Drop Cells Ovalocytes Helmet Cells Mendoza-Adrian Bodies [place] Rings [place] Cells Bite Cells Crenated Cell Elliptocytes Acanthocytes (Spur) Rouleaux Hemoglobin C Crystals Schistocytes Malaria parasites Maycol Bodies Hem Pathologist Commnt Sodium 130 L Potassium 3.4 L Chloride 95.7 L Carbon Dioxide 28 Anion Gap 10 BUN 4 L Creatinine < 0.2 L Estimated GFR > 60 BUN/Creatinine Ratio 20 Glucose 95 Calcium 8.3 L Magnesium 1.80 Total Bilirubin AST ALT Alkaline Phosphatase Total Protein Albumin Albumin/Globulin Ratio Valproic Acid 46.7 L Assessment and Plan Right hip fracture: Continue to monitor wound for healing. Physical therapy to improve patient's ability to ambulate and mobilize. Nursing to assist patient with getting up out of bed and into a chair for meals each day. Pain control as needed with focus on switching to oral medications prior to discharge. Have discussed this with patient at length. Monitor wound for any signs of dehis cence or infection. Change dressing every other day and as needed. Patient will need follow-up with Dr. Hanley. Seizures: Continue medication and adjust as needed. Seizure precautions in place. Sickle cell anemia: Patient states she is on hydroxyurea at home however I do not see that being listed as one of her medications here. We will restart that and monitor. Chest and back pain: Uncertain etiology but does not appear to be cardiogenic in nature. EKG to rule out cardiac etiology. Excoriations and itching: Possibly due to excessive amounts of opiates that the patient is taking, Benadryl cream for symptom relief and have reduced pain medications. Severe malnutrition: Consult dietitian. BMI 15, decreased muscle mass Pain: Discussed with the patient on multiple occasions need to reduce her reliance on IV pain medications and reduce overall dose of pain medications. Have reduced IV pain medications and will discontinue in the next couple of days. ADL dysfunction: OT will work on improving ability to perform ADLs (including assistive devices) to increase independence and decrease caregiver burden and improve functional transfers and mobility training. Difficulty walking: PT will work on gait training and proper use of assistive devices and advance as appropriate to use of stairs and outside ambulation on uneven surfaces. Unsteadiness on feet: PT will work on improving static and dynamic sitting and standing balance as well as proper use of assistive devices to decrease risk of falls. Abnormality of gait: PT will work to improve safety and efficiency of gait throu gh neuromotor training and gait training along with instruction on proper use of assistive devices. Muscle weakness: PT & OT will work on strengthening exercises to improve functional strength including mixture of closed and open kinetic chain exercises. Debility: PT & OT will work on improving overall functional status to improve participation with ADLs, mobility and social involvement. Fatigue: PT & OT will work on improving endurance through aerobic exercises and therapeutic activity while monitoring patients tolerance for activity and vital signs as needed. DVT ppx: Lovenox Pain: Continue physical modalities in therapy and pain medications as needed to achieve functional pain control. Sleep: Monitor and address as needed. Bowel: Monitor and address as needed. Appetite: Monitor and address as needed. Discharge planning: Pending therapy progress and care plan meeting. Will continue discussion with therapy team, SW, patient and family. Nursing has concerns about safety of patient at discharge. Will have social work look into this and possibly refer for APS consult. Patient will need wheelchair and bedside commode. Will discharge with home health. Restrictions/ Precautions: Falls, seizure WB status: Partial weightbearing on the right lower extremity Functional Hx: ADLs: Independent Cognition: Independent Mobility: No AD Barriers to Discharge: Decreased mobility and ability to perform self care, balance deficits, weakness Estimated Length of Stay: Discharge on Saturday 01/20 Discharge Destination: Home with family
[2021-01-19] MEDS: POTASSIUM CHLORIDE ER 20 MEQ TAB PO SCH (09:13)
[2021-01-19] MEDS: VALPROIC ACID 250 MG CAP PO SCH ×2 (09:13→21:01)
[2021-01-19] MEDS: FERROUS SULFATE 325 MG TAB PO SCH (09:13)
[2021-01-19] MEDS: FOLIC ACID 1 MG TAB PO SCH (09:13)
[2021-01-19] MEDS: HYDROXYUREA 500 MG CAP PO SCH (09:13)
[2021-01-19] MEDS ORDERED: HALOPERIDOL LACTATE 5 MG/1 ML INJ IM PRN (19:18)
[2021-01-19] MEDS ORDERED: HALOPERIDOL LACTATE 5 MG/1 ML INJ IM ONE (20:00)
[2021-01-19] MEDS: SENNOSIDES 8.6 MG TAB PO SCH (21:01)
[2021-01-20] MEDS: HYDROcodone/ACETAMINOPHEN 5-325 MG TAB PO PRN ×3 (00:54→10:28)
--- NOTE | 2021-01-20 08:35 | Discharge Summary ---
Providers - Providers Date of Admission: 01/16/21 10:28 Date of discharge: 01/20/21 Attending physician: KRYS OLGUIN III, MD 01/15/21 17:53 Occupational Therapy Evaluate and Treat [CONS] Routine Comment: Reason For Exam: ADL dysfunction Physical Therapy Evaluation and Treat [CONS] Routine Comment: Reason For Exam: Mobility Dysfunction 01/15/21 17:58 Consult to Case Management [CONS] Routine Services Needed at Discharge: Home Health Services Notified:: vocational case manag[employer] manager physician: RESISTOR TESTER Hospitalization Reason for admission: Right intertrochanteric fracture Condition: Fair Hospital course: 35-year-old female with a right intertrochanteric hip fracture that sought care in the ED due to pain and swelling. Initial x-rays showed a minimally displaced fracture with no extension into the intertrochanteric area and the patient was managed nonoperatively. Patient will subsequently discharged home where the pain became worse. Upon further examination, the fracture had become more displaced and she was taken for an IM nail procedure for fixation on 01/12/[address]ley. Patient also experienced a fall afterwards, examination after the fall revealed no loosening or damage to the hardware. Patient does have long history of narcotic use for pain related to sickle cell crisis. Conversations with the patient concerning her medications and seeing her primary care physicians revealed that she apparently has not been seeing anyone for the past 3 or 4 months. Initially it sounded like she still had medications that she was using however today she states that she does not have any medications. I did discuss with her that she needed to continue taking medications which I will send her home with scripts for. Also talked to her about the importance of finishing Xarelto and making sure that she seeks assistance and medical evaluation if she should fall and hit her head or if she has any symptoms of DVT or PE - ie a swollen extremity that is red and painful to the touch, or shortness of breath, etc. Right hip fracture: Continue to monitor for any signs of wound dehiscence, infection, or are hardware malfunction. Partial weightbearing per Ortho. Continue therapy to improve mobility and ability to perform self-care. Will change patient over to Xarelto for 21 days to complete a total of 28 days of DVT prophylaxis starting today. Patient will need to follow-up with Dr. Hanley next week. Seizure: Continue medications, Depakote level checked and is slightly on the low side. Seizure precautions in place. No seizures while the patient was on the rehab unit. Patient now states that she has not taken any of her seizure medications in several months. Patient will need to follow-up with primary care for further management. Sickle cell anemia: Continue hydroxyurea. Monitor for any signs of acute exacerbation/crisis Severe malnutrition: Dietitian consulted. Supplements started. Hypokalemia and hypomagnesemia: Patient apparently has a history of this upon review of records in the EMR. Have provided her with continued replacement of potassium and magnesium. Would request that PCP follow-up with labs in order to further adjust medications. ADL and mobility dysfunction: Patient did not necessarily work much with therapy during her short stay with us, however she has progressed to being modified independent. Pain control: I have had several conversations with the patient about pain medication and the need to discontinue IV pain medications. We stopped IV pain medications yesterday as the patient was 1 week out of her surgery. Have discussed this with the patient and her pain should be well controlled on oral medications. Will discharge patient home on a short course of oral pain medications and have discussed this with the patient. Search of PDMP on the [facility] website does not show any prescriptions for the patient in the last 2 years however the patient does state that she was being prescribed pain medications by her last physicians. Uncertain of the discrepancy but does raise concerns for sending her home with any prolonged period of pain medications based on patient's behavior and lack of clarity. Unfortunately, this patient is at a high risk for poor outcomes based on her decreased access to healthcare from a lack of insurance. Uncertain if there are also other aspects involved with her lack of attention to her health and her outburst on the hospital floor. We have attempted to provide her with everything necessary in order to ensure a safe transition home including DME, prescriptions and education on taking those medications, and follow-up with her surgeon as well as [facility]. I have stressed to the patient during her short stay with us that we are attempting to provide her with appropriate care in order to ensure that she does not have any mal-effects from her injuries. Despite this she did not work much with therapy and was a challenge for nursing and the patient's around her. Disposition: 01 HOME / SELF CARE / HOMELESS Final Discharge Diagnosis (Prints w/discharge instructions): Right femur fracture, seizure, sickle cell anemia Time spent for discharge: >30 mins Core Measure Documentation - Palliative Care Palliative Care/ Comfort Measures: Not Applicable - Core Measures Any of the following diagnoses?: none Exam - Physical Exam Narrative exam: MUSCULOSKELETAL SPECIALTY EXAM CONSTITUTIONAL: Well developed, malnourished, thin, appropriately groomed RESPIRATORY: Clear to auscultation bilaterally, no increased work of breathing CARDIOVASCULAR: Regular Rate/ Rhythm, no swelling, edema or tenderness in BUE or BLE. Pulses palpable in all extremities. All extremities warm. GI: + bowel sounds, soft, NTTP, nondistended. INTEGUMENTARY: Wound on right lower extremity intact , zip closure, slight excoriations on chest and back, otherwise normal, no lesion, rash, masses or bruising noted in extremities. MUSCULOSKELETAL: BUE and BLE normal without defect, crepitus, subluxation, effusion, arthritic changes or TTP. BUE 4+/5, good ROM, with normal tone. LLE 4+/5 good ROM, with normal tone, decreased range of motion/due to pain on the right lower extremity NEURO: CN 2-12 grossly intact. Sensation intact in all extremities. No tremor noted in 4 extremities. POSTURE and GAIT: Sitting posture good. Balance and gait good. PSYCH: Alert, affect appears normal today. Insight difficult to assess, patient seems fixated on pain medications. - Constitutional Vitals: Temp Pulse Resp BP Pulse Ox 99.4 F 107 H 17 118/77 100 01/20/21 03:34 01/20/21 03:34 01/20/21 03:34 01/20/21 03:34 01/20/21 03:34 - Allied Health Allied health notes reviewed: nursing, PT, OT Plan Activity: advance as tolerated, fall precautions Weight Bearing Status: Partial Weight Bearing (RLE) Diet: regular Wound: keep clean and dry, change dressing (every other day) Special Instructions: physical therapy, home health RN Durable Medical Equipment Needed Upon Discharge: Wheelchair, Bedside Commode Care Plan Goals: Patient will need to follow-up with Dr. Hanley who performed the surgery on her right leg. Have discussed with the patient that she needs to continue taking Xarelto until completed and that if she experiences any signs or symptoms of DVT/PE that she should report immediately to the nearest ER for evaluation Patient will also need to [facility] with [facility] and home in order to continue management of her chronic medical conditions. Follow up with: PRIMARY CARE, [Primary Care Provider] - 7 Days YAJAIRA HANLEY MD [Staff Physician] - [address] [facility] [Provider Group] - 7 Days (Seizure, Sickle Cell anemia, Hypokalemia, hypomagnesemia, RLE fracture s/p IM nail on Xarelto) Forms: AMA Form Prescriptions: Valproic Acid [Depakene] 500 mg PO BID #60 capsule Ferrous Sulfate [Feosol 325 MG tab] 325 mg PO QDAY #30 tablet Folic Acid [Folvite] 1 mg PO QDAY #30 tablet Hydroxyurea 500 mg PO QDAY #30 capsule Potassium Chloride [K-Dur] 20 meq PO QDAY #30 tablet HYDROcodone/APAP 5-325 [[place] 5-325 mg TAB] 1 each PO Q8H PRN #20 tablet PRN Reason: Mild Pain Unrelieved By Apap Famotidine [Pepcid] 10 mg PO BID #60 tablet Magnesium Chloride [Slow-Mag] 64 mg PO QDAY #30 tablet Rivaroxaban [Xarelto] 10 mg PO QDAY 20 Days #20 tablet
[2021-01-20 09:11] VITALS: BP 113/62
[2021-01-20] MEDS ORDERED: RIVAROXABAN 10 MG TAB PO SCH (10:00)
[2021-01-20] MEDS: MAGNESIUM CHLORIDE ER 64 MG TAB PO SCH (10:27)
[2021-01-20] MEDS: FAMOTIDINE 10 MG TAB PO SCH (10:27)
[2021-01-20] MEDS: VALPROIC ACID 250 MG CAP PO SCH (10:27)
[2021-01-20] MEDS: FERROUS SULFATE 325 MG TAB PO SCH (10:28)
[2021-01-20] MEDS: POTASSIUM CHLORIDE ER 20 MEQ TAB PO SCH (10:28)
[2021-01-20] MEDS: FOLIC ACID 1 MG TAB PO SCH (10:28)
[2021-01-20] MEDS: HYDROXYUREA 500 MG CAP PO SCH (10:28)
--- NOTE | 2021-01-25 14:00 | Electrocardiograph Report ---
[facility] Test Date: 2021-01-18 Test Time: 12:58:20 Pat Name: THERESA BRENNAN Department: Room: A456 1 Gender: F Manager Multicultural: MARCUS : 1985 Requested By: KRYS OLGUIN III Order Number: [id number] Reading MD: Charan García Measurements Intervals [place] Rate: 95 P: 72 CO: 138 QRS: 55 QRSD: 74 T: 58 QT: 351 QTc: 442 Interpretive Statements Sinus rhythm No previous ECG available for comparison Electronically Signed On 01-25-2021 14:00:03 EDT by Charan García
== END 2021-01-20 14:02 | disposition home or self-care (01) | DRG 947 ==
LOC: UNDOADMIN 16:10 → 4A 16:10
PROVIDERS: ADMIT Physical Medicine & Rehabilitation; ATTEND Physical Medicine & Rehabilitation
DX: R53.81 Other malaise (principal); S72.141A Displaced intertrochanteric fracture of right femur, initial encounter for closed fracture; E43 Unspecified severe protein-calorie malnutrition; Z68.1 Body mass index [BMI] 19.9 or less, adult; R26.81 Unsteadiness on feet; R56.9 Unspecified convulsions; D57.1 Sickle-cell disease without crisis
CPT/HCPCS: 36415; 80048; 80053; 80164; 83735; 85007; 85025; 85027; 93005; G0378; J1170; J1630; J1650

== ENCOUNTER 2021-04-21 18:34 | Emergency (ER) | payer SELFPAY ==
--- NOTE | 2021-04-22 04:44 | Event Note ---
ED Screening Note ED Screening Note: 36-year-old [place] female with past medical history of sickle cell disease presents emerge department complaining of pain to the right shoulder after a having a seizure couple days ago and falling onto her right shoulder. Since the fall she reports decreased range of motion to the right shoulder bruising swelling pain and and tingling off and on and has suspicion for injury to the shoulder which is the reason for her visit emergency department today she is also having some aches and pains to her knees and lower back This initial assessment/diagnostic orders/clinical plan/treatment(s) is/are subject to change based on patients health status, clinical progression and re- assessment by fellow clinical providers in the ED. Further treatment and workup at subsequent clinical providers discretion. Patient/guardian urged not to elope from the ED as their condition may be serious if not clinically assessed and managed. Initial orders include: Routine imaging of her right shoulder and provide some analgesia control with there is an obvious mechanism for pain
[2021-04-22 05:14] VITALS: BP 133/92
[2021-04-22] MEDS ORDERED: MORPHINE 4 MG/1 ML INJ IV ONE (05:47)
--- NOTE | 2021-04-22 06:07 | XRay Report ---
RIGHT SHOULDER 3 VIEW(S) INDICATION / CLINICAL INFORMATION: FALL INJURY COMPARISON: None available. FINDINGS: BONES / JOINT(S): Transverse fracture through the proximal right humerus. No significant arthritis. SOFT TISSUES: No significant abnormality. ADDITIONAL FINDINGS: None. Signer Name: Jovani Hoover DO Signed: 04/22/2021 6:03 AM Workstation Name: [email or web address]
[2021-04-22] MEDS ORDERED: diphenhydrAMINE 50 MG/ML VIAL IV ONE (06:40)
[2021-04-22] MEDS ORDERED: oxyCODONE /ACETAMINOPHEN 5-325MG TAB PO ONE (07:07)
--- NOTE | 2021-04-22 07:07 | Emergency Department Report ---
Upper Extremity - HPI Chief Complaint: Shoulder Injury Stated Complaint: R SHOULDER PAIN, SICKLE CELL PAIN Time Seen by Provider: 04/22/21 06:57 Upper Extremity: Right Shoulder Occurred When: 3 Days Mechanism: Other (during seizure) Symptoms: Yes Pain with Movement, Yes Limited Range of Movement, Yes Bruising/Ecchymosis, No Deformity, No Numbness, No Weakness, No Swelling Other History: Chief complaint: "I had a seizure. I hurt my shoulder.". HPI: This is a 36-year-old female with history of sickle cell disease, bipolar disorder seizure disorder who presents with right shoulder pain. Patient injured her shoulder 3 days ago during a seizure. She has bruising to the area. She has limited range of motion. She has 7 out of 10 pain. Otherwise she has been in her normal state of health. ED Review of Systems ROS: Stated complaint: R SHOULDER PAIN, SICKLE CELL PAIN Other details as noted in HPI Comment: All other systems reviewed and negative Constitutional: denies: chills, fever Respiratory: denies: cough, shortness of breath Cardiovascular: denies: chest pain ED Past Medical Hx - Past Medical History Previous Medical History?: Yes Hx Sickle Cell Disease: Yes Hx Psychiatric Treatment: Yes (Bipolar) - Surgical History Past Surgical History?: Yes Additional Surgical History: Right Hip, CSection - Social History Smoking Status: Unknown if ever smoked Substance Use Type: None - Medications Home Medications: Home Medications Medication Instructions Recorded Confirmed Last Taken Type Famotidine [Pepcid] 10 mg PO BID #60 tablet 01/20/21 Unknown Rx Ferrous Sulfate [Feosol 325 MG tab] 325 mg PO QDAY #30 tablet 01/20/21 Unknown Rx Folic Acid [Folvite] 1 mg PO QDAY #30 tablet 01/20/21 Unknown Rx HYDROcodone/APAP 5-325 [[place] 1 each PO Q8H PRN #20 tablet 01/20/21 Unknown Rx 5-325 mg TAB] Hydroxyurea 500 mg PO QDAY #30 capsule 01/20/21 Unknown Rx Magnesium Chloride [Slow-Mag] 64 mg PO QDAY #30 tablet 01/20/21 Unknown Rx Potassium Chloride [K-Dur] 20 meq PO QDAY #30 tablet 01/20/21 Unknown Rx Rivaroxaban [Xarelto] 10 mg PO QDAY 20 Days #20 tablet 01/20/21 Unknown Rx Valproic Acid [Depakene] 500 mg PO BID #60 capsule 01/20/21 Unknown Rx oxyCODONE /ACETAMINOPHEN [Percocet 1 tab PO Q6HR PRN #15 tablet 04/22/21 Unknown Rx 5/325] Upper Extremity Exam - Exam General: Vital signs noted. No distress. Alert and acting appropriately. Head and Torso: No HEENT Abnormality, No Neck Tenderness, No Chest/Lungs Abnormality, No Abdominal Tenderness, No Back Tenderness Shoulder Exam: Yes Shoulder Tenderness (Ecchymoses edema intact skin right shoulder), Yes Normal Range of Motion in Shoulder, No Clavicle Tenderness, No Shoulder Deformity, No AC Joint Tenderness Arm Exam: Yes Arm/Humerus Tenderness, No Arm Deformity Elbow: Yes Normal Range of Motion in Elbow, No Elbow Tenderness, No Elbow Deformity Forearm: No Forearm Tenderness, No Forearm Deformity, No Pain with Pronation, No Pain with Supination Wrist: Yes Normal ROM in Wrist, No Wrist Tenderness, No Wrist Deformity, No Snuffbox Tenderness, No Pain with Axial Thumb Compression Hand: Yes Normal ROM in Digit(s), No Hand Tenderness, No Hand Deformity, No Digit Tenderness, No Digit(s) Deformity, No Tendon Dysfunction CMS Exam: Yes Normal Distal Pulses, Yes Normal Capillary Refill, Yes Normal Distal Sensation, No Broken Skin ED Course Vital Signs 04/21/21 04/22/21 04/22/21 18:39 05:13 05:14 Temperature 98.2 F 98.2 F Pulse Rate 99 H 115 H Respiratory 18 20 20 Rate Blood Pressure 133/83 133/92 [Left] O2 Sat by Pulse 98 99 99 Oximetry 04/22/21 04/22/21 05:54 06:24 Temperature Pulse Rate Respiratory 20 20 Rate Blood Pressure [Left] O2 Sat by Pulse Oximetry ED Medical Decision Making - Radiology Data Radiology results: report reviewed Patient Name: THERESA BRENNAN Gender: Female Date of : 1985 Referring Provider: DOC, ED Organization: [facility] Accession Number: [id number] Requested Date: April 22, 2021 04:50 Report Status: Final Requested Procedure: 1 Procedure Description: XR shoulder 2+V RT Modality: XR Findings Reporting MD: Jovani Hoover Dictation Time: April 22, 2021 05:[address] Foreman: Not available Victims Advocate Clerk/Specialist Date: RIGHT SHOULDER 3 VIEW(S) INDICATION / CLINICAL INFORMATION: FALL INJURY COMPARISON: None available. FINDINGS: BONES / JOINT(S): Transverse fracture through the proximal right humerus. No significant arthritis. SOFT TISSUES: No significant abnormality. ADDITIONAL FINDINGS: None. Signer Name: Jovani Hoover DO Signed: 04/22/2021 5:03 AM Workstation Name: [id number] - Medical Decision Making Close humerus fracture treated with IV morphine p.o. Percocet emergency department patient given sling. Referred to orthopedic surgeon. Prescribed Percocet. Discharged home. Critical care attestation.: If time is entered above; I have spent that time in minutes in the direct care of this critically ill patient, excluding procedure time. ED Disposition Clinical Impression: Closed right humeral fracture Disposition: 01 HOME / SELF CARE / HOMELESS Is pt being admited?: No Does the pt Need Aspirin: No Condition: Stable Instructions: Humerus Fracture Treated With Immobilization, [id number] Prescriptions: oxyCODONE /ACETAMINOPHEN [Percocet 5/325] 1 tab PO Q6HR PRN #15 tablet PRN Reason: Pain Referrals: YAJAIRA DAY MD [Staff Physician] - 3-5 Days
== END 2021-04-22 08:08 | disposition home or self-care (01) ==
LOC: ED 18:34
DX: S42.301A Unspecified fracture of shaft of humerus, right arm, initial encounter for closed fracture (principal); D57.1 Sickle-cell disease without crisis; F31.9 Bipolar disorder, unspecified; Z98.890 Other specified postprocedural states; X58.XXXA Exposure to other specified factors, initial encounter; Y93.89 Activity, other specified; Y92.89 Other specified places as the place of occurrence of the external cause; Y99.8 Other external cause status
CPT/HCPCS: 73030; 96374; 96375; 99284; J1200; J2270

== ENCOUNTER 2021-07-21 21:00 | Emergency (ER) | payer SELFPAY ==
[2021-07-21] MEDS ORDERED: SODIUM CHLORIDE 0.9% 1000 ML 1,000 ML IV ONE (22:04)
--- NOTE | 2021-07-21 22:39 | XRay Report ---
CHEST 1 VIEW INDICATION / CLINICAL INFORMATION: Dyspnea. COMPARISON: Chest x-ray 07/10/2021 FINDINGS: SUPPORT DEVICES: None. HEART / MEDIASTINUM: No significant abnormality. LUNGS / PLEURA: The lungs are clear. No pneumothorax. BONES: Remote spiral fracture mid left humeral diaphysis. Remote fracture right humeral neck. ADDITIONAL FINDINGS: No significant additional findings. IMPRESSION: 1. No active cardiopulmonary disease. Signer Name: Raphael Mcguire II, MD Signed: 07/21/2021 10:35 PM Workstation Name: [id number]
[2021-07-21 23:07] LABS: Basophils # (Auto) 0.1 K/mm3 (0.0-0.1); Basophils % (Auto) 0.5 % (0.0-1.8); Eosinophils % (Auto) 0.1 % (0.0-4.3); Hematocrit 32.2 % (30.3-42.9); Hemoglobin 10.5 gm/dl (10.1-14.3); Lymphocytes # (Auto) 0.8 K/mm3 (1.2-5.4); Lymphocytes % (Auto) 7.8 % (13.4-35.0); Mean Corpuscular HGB Conc 33 % (30-34); Mean Corpuscular Volume 87 fl (79-97); Monocytes # (Auto) 0.9 K/mm3 (0.0-0.8); Monocytes % (Auto) 8.8 % (0.0-7.3); Platelet Count 266 K/mm3 (140-440)
[2021-07-21 23:08] LABS: Red Cell Distribution Width 23.4 % (13.2-15.2)
[2021-07-21 23:20] LABS: Alanine Aminotransferase 23 units/L (7-56); Albumin 3.7 g/dL (3.9-5); Blood Urea Nitrogen 4 mg/dL (7-17); Calcium 8.4 mg/dL (8.4-10.2); Hemolysis Index 3
[2021-07-21 23:30] LABS: BUN/Creatinine Ratio 10
[2021-07-21] MEDS ORDERED: POTASSIUM CHLORIDE ER 20 MEQ TAB PO ONE (23:38)
[2021-07-21] MEDS ORDERED: MORPHINE 4 MG/1 ML INJ IV ONE (23:38)
--- NOTE | 2021-07-21 23:40 | Emergency Department Report ---
ED Seizure HPI - General Chief Complaint: Seizure Stated Complaint: MH EVAL OFF MEDS Time Seen by Provider: 07/21/21 21:28 Source: EMS Mode of arrival: Stretcher Limitations: No Limitations, Other - History of Present Illness Initial Comments: EMS reports that pt called reporting a seizure and that pt was combative and spitting, given Haldol 5 mg MEDICAL PHYSICS RESEARCHER by EMS MD Complaint: seizure -: Gradual, days(s) Witnessed:: No Trauma: No Seizure History: none Associated Symptoms: chest pain, confusion. denies: denies other symptoms, cough, diaphoresis - Related Data Previous Rx's Medication Instructions Recorded Last Taken Type Famotidine [Pepcid] 10 mg PO BID #60 tablet 01/20/21 Unknown Rx Ferrous Sulfate [Feosol 325 MG tab] 325 mg PO QDAY #30 tablet 01/20/21 Unknown Rx Folic Acid [Folvite] 1 mg PO QDAY #30 tablet 01/20/21 Unknown Rx HYDROcodone/APAP 5-325 [[place] 1 each PO Q8H PRN #20 tablet 01/20/21 Unknown Rx 5-325 mg TAB] Hydroxyurea 500 mg PO QDAY #30 capsule 01/20/21 Unknown Rx Magnesium Chloride [Slow-Mag] 64 mg PO QDAY #30 tablet 01/20/21 Unknown Rx Potassium Chloride [K-Dur] 20 meq PO QDAY #30 tablet 01/20/21 Unknown Rx Rivaroxaban [Xarelto] 10 mg PO QDAY 20 Days #20 tablet 01/20/21 Unknown Rx Valproic Acid [Depakene] 500 mg PO BID #60 capsule 01/20/21 Unknown Rx HYDROcodone/APAP 5-325 [[place] 1 - 2 each PO Q6HR PRN #14 tablet 03/05/21 Unknown Rx 5/325] Ibuprofen [Motrin 800 MG tab] 800 mg PO Q8HR PRN #20 tablet 03/05/21 Unknown Rx oxyCODONE /ACETAMINOPHEN [Percocet 1 tab PO Q6HR PRN #15 tablet 04/22/21 Unknown Rx 5/325] Allergies Allergy/AdvReac Type Severity Reaction Status Date / Time No Known Allergies Allergy Verified 06/18/21 11:17 ED Review of Systems ROS: Stated complaint: MH EVAL OFF MEDS Other details as noted in HPI Constitutional: denies: chills, fever Eyes: denies: eye pain, eye discharge, vision change ENT: denies: ear pain, throat pain Respiratory: denies: cough, shortness of breath, wheezing Cardiovascular: denies: chest pain, palpitations Endocrine: no symptoms reported Gastrointestinal: denies: abdominal pain, nausea, diarrhea Genitourinary: denies: urgency, dysuria, discharge Musculoskeletal: denies: back pain, joint swelling, arthralgia Skin: denies: rash, lesions Neurological: denies: headache, weakness, paresthesias Psychiatric: denies: anxiety, depression Hematological/Lymphatic: denies: easy bleeding, easy bruising ED Past Medical Hx - Past Medical History Previous Medical History?: No Hx Hypertension: No Hx Sickle Cell Disease: Yes (Chronic sickle cell pain) Hx Psychiatric Treatment: Yes (Bipolar) Additional medical history: Sickle cell disease - Surgical History Past Surgical History?: Yes Additional Surgical History: R HIP SURGERY secondary to avascular necrosis - Social History Smoking Status: Never Smoker Substance Use Type: Alcohol - Medications Home Medications: Home Medications Medication Instructions Recorded Confirmed Last Taken Type Famotidine [Pepcid] 10 mg PO BID #60 tablet 01/20/21 Unknown Rx Ferrous Sulfate [Feosol 325 MG tab] 325 mg PO QDAY #30 tablet 01/20/21 Unknown Rx Folic Acid [Folvite] 1 mg PO QDAY #30 tablet 01/20/21 Unknown Rx HYDROcodone/APAP 5-325 [[place] 1 each PO Q8H PRN #20 tablet 01/20/21 Unknown Rx 5-325 mg TAB] Hydroxyurea 500 mg PO QDAY #30 capsule 01/20/21 Unknown Rx Magnesium Chloride [Slow-Mag] 64 mg PO QDAY #30 tablet 01/20/21 Unknown Rx Potassium Chloride [K-Dur] 20 meq PO QDAY #30 tablet 01/20/21 Unknown Rx Rivaroxaban [Xarelto] 10 mg PO QDAY 20 Days #20 tablet 01/20/21 Unknown Rx Valproic Acid [Depakene] 500 mg PO BID #60 capsule 01/20/21 Unknown Rx HYDROcodone/APAP 5-325 [[place] 1 - 2 each PO Q6HR PRN #14 tablet 03/05/21 Unknown Rx 5/325] Ibuprofen [Motrin 800 MG tab] 800 mg PO Q8HR PRN #20 tablet 03/05/21 Unknown Rx oxyCODONE /ACETAMINOPHEN [Percocet 1 tab PO Q6HR PRN #15 tablet 04/22/21 Unknow n Rx 5/325] ED Physical Exam - General Limitations: Other General appearance: alert, in no apparent distress - Head Head exam: Present: atraumatic, normocephalic - Eye Eye exam: Present: normal appearance - ENT ENT exam: Present: mucous membranes moist - Neck Neck exam: Present: normal inspection - Respiratory Respiratory exam: Present: normal lung sounds bilaterally. Absent: respiratory distress - Cardiovascular Cardiovascular Exam: Present: regular rate, normal rhythm. Absent: systolic murmur, diastolic murmur, rubs, gallop - GI/Abdominal GI/Abdominal exam: Present: soft, normal bowel sounds - Extremities Exam Extremities exam: Present: normal inspection - Back Exam Back exam: Present: normal inspection - Neurological Exam Neurological exam: Present: alert, oriented X3 - Psychiatric Psychiatric exam: Present: normal affect, normal mood - Skin Skin exam: Present: warm, dry, intact, normal color. Absent: rash ED Course Vital Signs 07/21/21 21:16 Temperature 97 F L Pulse Rate 129 H Respiratory 16 Rate Blood Pressure 139/92 [Right] O2 Sat by Pulse 99 Oximetry ED Medical Decision Making - Lab Data Result diagrams: 07/21/21 22:35 07/21/21 22:35 Critical care attestation.: If time is entered above; I have spent that time in minutes in the direct care of this critically ill patient, excluding procedure time. ED Disposition Clinical Impression: Seizure, Hypokalemia Disposition: 01 HOME / SELF CARE / HOMELESS Is pt being admited?: No Does the pt Need Aspirin: No Condition: Stable Instructions: Epilepsy, [id number], Hypokalemia Referrals: PRIMARY CARE, [Primary Care Provider] - 3-5 Days
[2021-07-22] MEDS ORDERED: diphenhydrAMINE 25 MG CAP PO ONE (00:05)
[2021-07-22 00:19] VITALS: BP 146/59
== END 2021-07-22 00:21 | disposition home or self-care (01) ==
LOC: EEVIPCON 21:00 → ED 21:00
DX: R56.9 Unspecified convulsions (principal); E87.6 Hypokalemia; F31.9 Bipolar disorder, unspecified; D57.00 Hb-SS disease with crisis, unspecified; Z98.890 Other specified postprocedural states
CPT/HCPCS: 36415; 71045; 80053; 85025; 96361; 96374; 99284; J2270; J7030; Q0162